=== PATIENT | male | born 1945 | race Caucasian/White ===

== ENCOUNTER 2017-07-14 01:23 | Inpatient (IN) ==
[2017-07-14 01:44] LABS: Basophils # 0.1 K/mcL (0.0-0.2); Basophils % 0.5 %; Eosinophils # 0.1 K/mcL (0.0-0.6); Eosinophils % 0.9 %; Hematocrit 47.3 % (37.5-50.1); Hemoglobin 16.6 g/dL (12.9-16.9); Immature Granulocytes % 0.5 % (0-4); Lymphocytes # 4.3 K/mcL (0.6-4.6); Lymphocytes % 33.5 %; Mean Corpuscular HGB Conc 35.1 g/dL (31.6-35.5); Mean Corpuscular Hemoglobin 29.9 pg (28.0-33.3); Mean Corpuscular Volume 85.2 fL (83.0-100.0); Monocytes # 0.7 K/mcL (0.0-1.3); Monocytes % 5.3 %; Neutrophils # 7.6 K/mcL (1.6-8.9); Platelet Count 244 K/mcL (140-400); Red Blood Count 5.55 M/mcL (4.19-5.50); Red Cell Distribution Width 12.5 % (11.5-14.5); Segmented Neutrophils % 59.3 %
[2017-07-14 01:50] LABS: INR 1.1; Prothrombin Time 12.3 Seconds (9.4-12.1)
[2017-07-14 01:53] LABS: Activated Partial Thrombo Time 27.7 Seconds (26.0-36.0)
[2017-07-14 02:00] LABS: BUN/Creatinine Ratio 12 (6-26); Blood Urea Nitrogen 16 mg/dL (8-26); Calcium 10.3 mg/dL (8.6-10.8); Carbon Dioxide 24 mEq/L (19-29); Chloride 103 mEq/L (98-109); Glucose 253 mg/dL (70-99); Osmolality,Calculated 298 (280-300); Potassium 5.1 mEq/L (3.5-4.5); Sodium 139 mEq/L (136-145); eGFR For African Americans > 60 (> 60); eGFR For Non-African Americans 53 (> 60)
--- NOTE | 2017-07-14 02:04 | Emergency Department Note ---
Disposition Clinical Impression: Elevated troponin Chest pain Qualifiers: Chest pain type: chest pain on breathing Qualified Code(s): R07.1 - Chest pain on breathing; R07.81 - Pleurodynia Disposition: Admitted As Inpatient Condition: Good Time of Disposition: 02:40 Chest Pain HPI - General Chief Complaint: ED Chest Pain Stated Complaint: cp Time Seen by Provider: 07/14/17 01:26 Source: patient Mode of arrival: ambulatory Limitations: no limitations Vital Signs Reviewed: Yes Nursing Notes Reviewed: Yes - History of Present Illness HPI Narrative: 9-year-old male presents to the ED complaining of chest pain occurring for about 2 weeks but have increased today where happened twice in the last time he is had it for the last 4 hours. He says it feels a burning in his chest that radiates to both arms and up into his right jaw. He has no cardiac history. He did have a heart catheter done in the s but there was no blockages found. He has not had any cardiac workup since that time. He has had no nausea or vomiting. He recently was changed off metformin as he was diagnosed with diabetes due to having high blood sugars while on it and having some chest discomfort while on it. He was changed to glyburide today. His primary care physician did order a stress test due to this chest pain that has been going on. But they have not heard back on when his schedule. Patient does have a cardiac history in the family. He is not having nausea or vomiting no shortness of breath. He does say the chest pain does get worse when he does physical activity. Patient otherwise has no complaints. Severity scale (1-10): 7 - Related Data Allergies Allergy/AdvReac Type Severity Reaction Status Date / Time No Known Allergies Allergy Verified 07/14/17 01:27 Review of Systems: 10 point review of systems done and negative unless otherwise stated in history of present illness. All systems ED: reviewed and negative except as stated. Review of Systems: As Per HPI Constitutional: Denies: fever, chills, weakness, weight change Cardiovascular: Reports: chest pain. Denies: palpitations, dyspnea on exertion Gastrointestinal: Denies: abdominal pain, nausea, vomiting, diarrhea, constipation, hematemesis, melena, hematochezia Chest Pain PMH - Past Medical History Medical history: Reports: diabetes, hyperlipidemia Psychiatric history: Reports: no psych history - Social History Smoking Status: Never smoker Alcohol use: Reports: occasionally Drug use: Reports: none Physical Exam - General Limitations: no limitations General appearance: alert, in no apparent distress - Head Head exam: atraumatic, normocephalic, normal inspection - Eye Eye exam: Present: normal appearance, PERRL, EOMI - ENT ENT exam: normal exam, normal oropharynx, mucous membranes moist - Neck Neck exam: Present: normal inspection, full ROM, trachea midline - Chest Chest inspection: Present: normal inspection, symmetric chest wall rise - Respiratory Respiratory exam: Present: normal lung sounds bilaterally - Cardiovascular Cardiovascular exam: Present: regular rate, normal rhythm, normal heart sounds - Abdominal Exam Abdominal exam: Present: soft, Non-Tender. Absent: tenderness, distention, guarding, rebound, rigidity - Expanded Lower Extremity Exam Neurovascular/Tendon exam: Absent: motor deficit, sensory deficit, tendon deficit - Back Exam Back exam: Present: normal inspection, full ROM. Absent: tenderness, CVA tenderness (R), CVA tenderness (L) - Neurological Exam Neurological exam: Present: alert, oriented X3 - Skin Skin exam: Present: warm, dry, intact, normal color Course Course Narrative: 72-year-old male presented with chest pain. We did a normal chest pain workup including EKG, chest x-ray aspirin, troponin, CBC, CMP. Patient is okay with this plan. This patient is most likely being admitted I explained it to him. He is okay with this. Vital Signs Temperature 97.7 F 07/14/17 01:24 Pulse Rate 78 07/14/17 01:24 Respiratory Rate 18 07/14/17 01:24 Blood Pressure 183/85 07/14/17 01:24 O2 Sat by Pulse Oximetry 97 07/14/17 01:24 Temperature 97.7 F 07/14/17 01:24 Pulse Rate 78 07/14/17 01:24 Respiratory Rate 18 07/14/17 01:24 Blood Pressure 183/85 07/14/17 01:24 O2 Sat by Pulse Oximetry 97 07/14/17 01:24 Oxygen Delivery Oxygen Delivery Room Air Chest Pain - MDM Narrative Medical decision making narrative: 9-year-old male presents to the ED for chest pain. He states has been going on for a few months but has worsened the last week or so. He states that he did have 4 hours if continued chest pain before arrival. As he arrives he has no chest pain. He was recently changed from metformin to glyburide yesterday and is PCP also ordered a stress test through this chest pain is been having. The chest pain is worse on exertion. We did normal chest pain workup which came back showing elevated troponin at 1.78. After reevaluating him we noticed that his EKG was changing through several of the ST depressions reside a repeat an EKG the repeat EKG did have some ST changes where he was showing depression in leads 2 and aVL and also had flipped T waves in V5 and V6. At this time we called the interventional list and explained to him the patient he said to start heparin and they would do a catheter in the morning. We admitted to the hospitalist who agreed to accept the patient. He started him on heparin and give him aspirin. Patient was admitted in stable condition still having no chest pain. Chest X-Ray 07/14/17 01:28 IMPRESSION: Negative portable chest. D/ / Ritchie Cadet MD / Ritchie Cadet MD Interpreting Provider: Ritchie Cadet MD - Medical Records Medical records reviewed: Yes I reviewed the patient's medical records. - Lab Data Lab results reviewed: Yes I reviewed the patient's lab results. Result diagrams: 07/14/17 01:38 07/14/17 01:38 Lab Results 07/14/17 07/14/17 07/14/17 Range/Units 01:38 01:38 01:38 WBC 12.8 H (4.3-11.1) K/mcL RBC 5.55 H (4.19-5.50) M/mcL Hgb 16.6 (12.9-16.9) g/dL Hct 47.3 (37.5-50.1) % MCV 85.2 (83.0-100.0) fL MCH 29.9 (28.0-33.3) pg MCHC 35.1 (31.6-35.5) g/dL RDW 12.5 (11.5-14.5) % Plt Count 244 (140-400) K/mcL MPV 9.0 L (9.4-12.4) fL Immature Gran % 0.5 (0-4) % Seg Neutrophils % 59.3 % Lymphocytes % 33.5 % Monocytes % 5.3 % Eosinophils % 0.9 % Basophils % 0.5 % Neutrophils # 7.6 (1.6-8.9) K/mcL Lymphocytes # 4.3 (0.6-4.6) K/mcL Monocytes # 0.7 (0.0-1.3) K/mcL Eosinophils # 0.1 (0.0-0.6) K/mcL Basophils # 0.1 (0.0-0.2) K/mcL PT 12.3 H (9.4-12.1) Seconds INR 1.1 APTT 27.7 (26.0-36.0) Seconds Sodium 139 (136-145) mEq/L Potassium 5.1 H (3.5-4.5) mEq/L Chloride 103 (98-109) mEq/L Carbon Dioxide 24 (19-29) mEq/L BUN 16 (8-26) mg/dL Creatinine 1.34 H (0.72-1.25) mg/dL Est GFR ( Amer) > 60 (> 60) Est GFR (Non-Af Amer) 53 L (> 60) BUN/Creatinine Ratio 12 (6-26) Glucose 253 H (70-99) mg/dL Calculated Osmolality 298 (280-300) Calcium 10.3 (8.6-10.8) mg/dL - Radiology Data Radiology results reviewed: Yes I reviewed the patient's radiology results. - EKG Data EKG attestation: Yes I reviewed and interpreted this EKG. EKG results narrative: EKG #1 done at 0129 reviewed by myself and the attending shows normal sinus rhythm with no acute changes. At a rate of 78, GA interval 188, QRS 94, QTc 380 with a leftward axis. There is no acute ST changes, no acute T-wave changes. No signs of heart strain or hypertrophy, heart block. No signs of WPW /brugada syndrome. There was no old EKG to compare with. EKG #2 done at 0212 myself and the attending shows normal sinus rhythm at a rate of 81, GA interval 170, QRS 86, QTC 393 with a leftward axis deviation. There is new ST depression in leads 2 and aVL as well as lead 1. There is also flipped T waves in V5 and V6. There is no other acute changes. Heart Score - Score History: Highly Suspicious EKG: Normal Age: Greater than 65 Risk Factors: 1-2 risk factors Troponin: 1-3x normal limit HEART Score Total: 6
--- NOTE | 2017-07-14 02:08 | Emergency Department Note ---
START Narrative - START START: I examined this patient and my medical decision-making was reviewed with the Resident Physician. I agree with the documented findings, disposition and treatment plan as described except to the extent set forth below. 72-year-old male presents emergency room for chest pain. States it starts in the midsternal region and radiates up into the neck and ears into the left arm. Saw his doctor yesterday who thought it could have been indigestion. He had been on metformin but he told him to stop that secondary to the GI symptoms. He has no documented cardiac history. His last heart catheter was in the . Patient when he be admitted for further ACS workup and evaluation and possible stress test.
[2017-07-14] MEDS ORDERED: Aspirin 81 MG TAB.CHEW PO ONE (02:09)
[2017-07-14] MEDS ORDERED: *HR* Heparin 5,000 UNIT/ML VIAL IVP ONE (02:20)
[2017-07-14] MEDS: Heparin 25,000 UNIT/500 ML D5W 25,000 UNIT/500 ML MLS IVC SCH (02:40)
[2017-07-14] MEDS ORDERED: Nitroglycerin 0.4 MG TAB.SUBL SL PRN (02:55)
[2017-07-14] MEDS ORDERED: Naloxone 0.4 MG/ML INJ IVP PRN (02:55)
[2017-07-14] MEDS ORDERED: *HR* Dextrose 50 % in Water (Syg) 50 ML SYRINGE IVP PRN (02:55)
[2017-07-14] MEDS ORDERED: Ondansetron 4 MG/2 ML VIAL IVP PRN (02:55)
[2017-07-14] MEDS ORDERED: Dextrose Gel 15 GM PO PRN ×2 (02:55)
[2017-07-14] MEDS ORDERED: *HR* Morphine 2 MG/ML SYRINGE IVP PRN ×2 (02:55→03:08)
[2017-07-14] MEDS ORDERED: D5% in Water 1,000 ML IVC PRN (02:55)
[2017-07-14] MEDS ORDERED: 0.9 % Sodium Chloride 1,000 ML IVC SCH (03:00)
[2017-07-14] MEDS ORDERED: Pantoprazole 40 MG VIAL IVP SCH (03:01)
--- NOTE | 2017-07-14 03:04 | Internal Med History&Physical ---
Date of Encounter: 07/14/17 Time of Encounter: 03:02 Assessment and Plan (1) Non-STEMI (non-ST elevated myocardial infarction) Current visit: Yes Status: Acute Continue heparin drip Cardiology was consulted Continue aspirin, metoprolol, Lipitor, nitroglycerin, morphine as needed Monitor troponins, check echocardiogram Nothing by mouth for possible cardiac catheterization later today Protonix IV for GI prophylaxis and heparin drip for DVT prophylaxis. The patient will be admitted as inpatient, expected to stay more than 2 midnights. Full code. Time spent on this admission 40 minutes. (2) Accelerated hypertension Current visit: Yes Status: Acute Hydralazine as needed (3) Diabetes Current visit: Yes Status: Acute Insulin sliding scale Hold glyburide Qualifiers: Diabetes mellitus type: type 2 Diabetes mellitus complication status: without complication Diabetes mellitus retirement insulin use: without retirement use Qualified Code(s): E11.9 - Type 2 diabetes mellitus without complications (4) Leukocytosis Current visit: Yes Status: Acute Qualifiers: Leukocytosis type: unspecified Qualified Code(s): D72.829 - Elevated white blood cell count, unspecified (5) Hyperkalemia Current visit: Yes Status: Acute Continue IV fluids and monitor potassium, consider Kayexalate (6) Dehydration Current visit: Yes Status: Acute IV fluids Internal Medicine - H&P: HPI Chief complaint: Chest pain Admitted From: Emergency Dept History of present illness: Mr. Downing is a 72 year old male with a past medical history of diabetes type 2 not insulin-dependent, hypertension, hyperlipidemia who came to the emergency room complaining of severe chest pain, burning like has been going on and off for the past 2 weeks and got worse around 1 AM and lasted for about 4 hours. Described as 8 out of 10 in intensity radiating to both shoulders and both sides of the jaw, the patient is pain-free at the moment. His creatinine has increased up to 1.34 from a baseline of 1.16. Potassium is 5.1 troponin is 1.78 White blood cell count 12.8. Blood pressure is very high at 183/85. The patient mentions that he was complaining of some belching. EKG shows ST abnormalities in leads 1 and 2 and aVL with T-wave inversions in the lateral leads. Cardiology was contacted and heparin drip was started. Past Med Surg Social Fam HX - Past Medical History Medical history: diabetes (Not insulin-dependent), hyperlipidemia, hypertension (Not treated for the past year) Psychiatric history: no psych history - Past Surgical History Surgical History: cholecystectomy, other (Normal cardiac catheterizations in the 90s, tonsillectomy) - Social History Smoking Status: Never smoker Smokeless Tobacco Status: No Alcohol use: occasionally Drug use: none - Additional Family History Additional family history: Father with a myocardial infarction in his 70s and mother with myocardial infarction in her 60s Internal Medicine - H&P: Meds 3 Allergy/AdvReac Type Severity Reaction Status Date / Time No Known Allergies Allergy Verified 07/14/17 01:27 All Systems PM: A 10-system review of systems was performed and is negative for pertinent findings except as documented above in the HPI. Review of systems: Denies any chest pain at the moment no shortness of breath. Other systems out of the 10 reviewed were negative - Constitutional Vitals: Temp Pulse Resp BP Pulse Ox 97.7 F 77 18 156/84 96 07/14/17 01:24 07/14/17 02:24 07/14/17 02:52 07/14/17 02:52 07/14/17 02:24 General appearance: Present: A&O X 3 - Head Head exam: Present: atraumatic, normocephalic - Eye Eye exam: Present: PERRL, conjuntiva pink, sclera anicteric Pupils: Present: PERRL - Neck Neck exam general surgery: Present: supple, trachea midline. Absent: lymphadenopathy - Respiratory Respiratory exam: Present: CTAB. Absent: accessory muscle use, rales, rhonchi, wheezes - Cardiovascular Cardiovascular exam: Present: RRR, +S1, +S2. Absent: diastolic murmur, gallop, rubs, systolic murmur - GI/Abdominal GI/Abdominal exam: Present: normal bowel sounds, soft, no peritoneal signs. Absent: distended, tenderness - Extremities Exam Extremities exam: Present: warm, radial pulses palpable and symmetrical. Absent : calf tenderness, cyanotic, pedal edema - Neurological Exam Neurological exam: Present: CN II-XII intact, oriented X3, no focal deficits. Absent: pronater drift, facial droop, speech deficit - Skin Skin exam: Present: dry, intact Internal Med - H&P Results - Labs CBC & Chem 7: 07/14/17 01:38 07/14/17 01:38
[2017-07-14 05:14] LABS: Chol/HDL Ratio 3.2 (0-4.9)
[2017-07-14] MEDS ORDERED: Insulin LISPRO 300 UNITS/3 ML VIAL SQ SCH (06:00)
[2017-07-14] MEDS ORDERED: Aspirin 81 MG TAB.CHEW PO SCH (09:00)
--- NOTE | 2017-07-14 09:39 | Event Note ---
Date of Encounter: 07/14/17 Time of Encounter: 09:34 Seen and evaluated at bedside with partner Admitted and being managed for NSTEMI He is without chest pain at this time, and denies shortness of breath, he is very active at baseline, and is not sedentary, he is a non-smoker Physical exam: VSS, not in distress, no chest wall tenderness, chest is CTAB, HS S1, S2, no m/g/r, abdomen is soft and non-tender. Extremities with no edema. Labs and Imaging reviewed: Mild hyperkalemia, dehydration, Troponin 1.78-2.96 CXR unremarkable, ECHO is pending A/P NSTEMI: Continue heparin/BB/ASA/High intensity statin. Hold ACEI due to abnormal kidney function, cardiology eval Dehydration: Slight elevation in Creatinine, no BRANDY criteria, continue IVF avoid nephrotoxins, high risk due to exposure to contrast for [facility] Hyperkalemia: Should improve with IVF Uncontrolled HTN: Improved DM: FS acceptable, A1C 7.6 -07/12/17. Continue insulin sliding scale, Lipids are WNL
--- NOTE | 2017-07-14 09:50 | Cardiology Consult Note ---
Date of Encounter: 07/14/17 Time of Encounter: 09:46 Assessment and Plan (1) Non-STEMI (non-ST elevated myocardial infarction) Current Visit: Yes Status: Acute NSTEMI as patient has had atypical chest pain and elevated troponin with ST depression leads II, AVL, and Twave inversion on V5, V6. 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 Discussion w patient/family: The assessment and plan as outlined above was discussed with the patient and/or family members who expressed understanding and agreement. All questions were answered. Thank you for involving us in the care of your patient. Please call with any questions. History of Present Illness Consult date: 07/14/17 Requesting physician: Ritchie Mccabe Consult reason: NSTEMI Chief complaint: chest pain History of present illness: Mr. Downing is a 72 year old male with a pmh of DM2, HTN, HLP, non-smoker presented with CP for 2 weeks that worsened overnight and was found to have an NSTEMI. Patient has had burning chest pain radiating to both arms and R jaw. Worst with exertion since June. He had chest pain once before this in the and had a negative cath. In the ED patient was found to have elevated troponin to 1.78, ST depression in II, avL, and inverted T waves v5, v6. Currently patient says his chest pain is mild like "indigestion" and an aching between his shoulder blades. Currently light headed but Denies N/V. Past Med Surg Social Fam HX - Past Medical History Medical history: diabetes, hyperlipidemia, hypertension Psychiatric history: no psych history - Past Surgical History Surgical History: cholecystectomy, other - Social History Smoking Status: Never smoker Smokeless Tobacco Status: No Alcohol use: occasionally Drug use: none - Family History Father Living Status: Age at : 87 Cause of : [place] Hx Family Cardiac Disorders: Yes ([place] x3,) Hx Family Respiratory Disorders: Yes (Emphysema) Hx Family Cancer: No Hx Family GI Disorders: No Hx Family Genitourinary Disorders: Yes ("twisted bowel") Hx Family Endocrine Disorder: No Hx Family Musculoskeletal Disorders: No Hx Family Neuromuscular Disorders: No Hx Family Neurologic Disorders: No Hx Family HEENT Disorders: No Hx Family Autoimmune Disorders: No Hx Family Reproductive Disorders: No Hx Family Psychosocial Disorders: No Hx Family Medical Disorders: No Medications and Allergies Albuterol Sulfate [Albuterol Inhaler] 2 puff IH Q4-6H PRN 07/14/17 [History] Aspirin [Lo-Dose Aspirin EC] 81 mg PO DAILY 07/14/17 [History] Atorvastatin [Lipitor] 40 mg PO HS 07/14/17 [History] Glimepiride [Amaryl] 2 mg PO DAILY 07/14/17 [History] Pantoprazole Sodium 40 mg PO DAILY 07/14/17 [History] 3 Allergy/AdvReac Type Severity Reaction Status Date / Time No Known Allergies Allergy Verified 07/14/17 01:27 All Systems Review: A 10-system review of systems was performed and is negative for pertinent findings except as documented above in the HPI. Physical Examination Vital Signs, Last 4 Hours Temp Pulse Resp BP Pulse Ox 07/14/17 07:41 98.5 F 63 16 130/72 96 General: Conversant, No Apparent Distress Neck: No JVD, Normal carotid pulses Cardiac: Reg Rate and Rhythm, Normal S1 and S2, No Murmur Lungs: Other (+ crackles at R lung base) Neuro: Alert and responsive, No focal deficits noted Abdomen: Soft, Non-Tender Skin: No rashes noted on visualized skin Extremities: No Clubbing, No Cyanosis, No Edema, Normal Pulses Results 07/14/17 01:38 07/14/17 01:38 Lab Results 07/14/17 08:55 APTT 96.3 H D Consult Discharge Plan - Plan Referrals: Bambi Garner MD [Primary Care Provider] - 07/19/17 9:15 am ()
[2017-07-14] MEDS: Aspirin Enteric Coated 81 MG Tablet PO SCH (09:54)
--- NOTE | 2017-07-14 09:55 | Electrocardiograph Report ---
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
--- NOTE | 2017-07-14 09:55 | Electrocardiograph Report ---
[place] [id number] Test Date: 2017-07-14 Pat Name: Alec Downing Department: 112 Room: 2A14 Gender: M Desk Director: MICHAEL : 1945 Requested By: Kendrick Miller Order Number: [id number] Reading MD: Abbey Peterson Measurements Intervals [place] Rate: 80 P: 57 MS: 191 QRS: -21 QRSD: 90 T: 212 QT: 363 QTc: 400 Interpretive Statements SINUS RHYTHM BORDERLINE LEFT AXIS DEVIATION ST DEVIATION AND MODERATE T-WAVE ABNORMALITY, CONSIDER LATERAL ISCHEMIA ST DEVIATION AND MODERATE T-WAVE ABNORMALITY, CONSIDER INFERIOR ISCHEMIA Electronically Signed On 07-14-2017 9:53:46 EDT by Abbey Peterson
--- NOTE | 2017-07-14 09:56 | Electrocardiograph Report ---
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
[2017-07-14] MEDS ORDERED: Heparin 1,000 UNITS/500 mL NS 500 ML ONE (10:00)
[2017-07-14] MEDS ORDERED: *HR* Heparin 10,000 UNIT/10 ML VIAL ONE (10:00)
[2017-07-14] MEDS ORDERED: 0.9 % Sodium Chloride 1,000 ML ONE ×2 (10:00→10:05)
[2017-07-14] MEDS ORDERED: *HR* Midazolam HCl 2 MG/2 ML VIAL ONE (10:04)
--- NOTE | 2017-07-14 10:26 | Pre-Sedation Evaluation ---
Pre-sedation evaluation - Pre-sedation checklist Date of procedure: 07/14/17 Procedure: heart cath Recent Vitals: Last Vital Signs Temp 98.5 F 07/14/17 07:41 Pulse 63 07/14/17 07:41 Resp 16 07/14/17 07:41 BP 130/72 07/14/17 07:41 Pulse Ox 96 07/14/17 10:00 H&P (including ROS) documented in medical record: Yes Previous reaction to sedatives/anesthetics: No Dietary Status: NPO after Midnight Airway Assessment: Patient can open mouth completely, TMJ function normal Dentition: dentures removed Possible difficult airway: No ASA Classification *see protocol: CLASS III-Severe systemic disease Plan of Care: Pt appropriate candidate for procedure/moderate/conscious sedation , Risks/benefits of procedure/sedation discussed w/ patient/family, If not NPO; Risk of intake outweiged by necessity to perform procedure
--- NOTE | 2017-07-14 11:01 | Invasive Diagnostic Lab Proc ---
Name: Alec Downing Date of Study: 07/14/2017 Date: 1945 Ht: 68.9in Medical Record#: [id number] Age: 72 Wt: 191.80lb Gender: Male BSA: 2.03 Order #: [id number] BMI: 28.41 Physicians Procedure Physician: Diomedes Friedman DO Referring MD: Referring MD: Staff Name Position Time In Mellisa Son RT (R) Scrub 10:22 AM Rosalva Mata RN Retail Director 10:22 AM Ariana Fields RN Monitor 10:22 AM Indications Indication Non-Stemi Procedures Performed Procedure L HRT ARTERY/VENTRICLE ANGIO Pre-Procedure Checklist Informed consent is complete signed and on chart. H&P is on chart. ID band is on and ID verified with patient. Patient NPO for procedure The procedure was described for the patient and questions were answered. Blood Pressure: 130/72 ECG is on chart. Rhythm: NSR Plan of Care Patient will tolerate the procedure without complications. Adequate level of comfort will be maintained. Hemodynamics will remain stable Patient will recover from procedure without complications. Respiratory function will be maintained. Cardiac rhythm will remain stable. Patient temperature will be maintained. Patient and/or family have verbalized understanding of the procedure. Patient Education Chief Complaint/Reason for Test: Cardiac Cath Developmental Category: Geriatric (65+ years) Developmentally Appropriate for Age: Yes Learning Barriers: None Education Needs: Procedure Education Method: Verbal Information Taught: Cardiac Cath Educational Evaluation: Able to repeat information Intravenous Access Time IV Size Location DC'd Fluid/Drip Rate Units RN 10:00 AM 18g 1 /" Patent On Arrival Lt Antecubital 0.9NaCl 25 ml/hr Hammad Wheeler RN Allergies No Known Allergies Vital Signs Time BP (mmHg) HR (bpm) O2 Sat. RR (bpm) LOC 10:01 AM 130 / 72 63 96 % 16 5 = Fully awake and oriented or at pre-proc level 10:23 AM / % 5 = Fully awake and oriented or at pre-proc level 10:23 AM / % 5 = Fully awake and oriented or at pre-proc level 10:23 AM 154 / 78 75 97 % 12 10:27 AM 133 / 72 72 95 % 21 10:32 AM 119 / 67 66 96 % 21 10:37 AM 124 / 69 63 95 % 15 10:42 AM 118 / 73 67 97 % 13 10:47 AM 129 / 72 64 98 % 19 10:38 AM / % 5 = Fully awake and oriented or at pre-proc level Procedural Medications Time Medication Dose Units Method Given By 10:23 AM Oxygen 2 L/min nasal cannula Rosalva Mata RN 10:24 AM Versed 2 mg Intravenous Rosalva Mata RN 10:36 AM Lidocaine 2% 10 ml Subcutaneous Diomedes Friedman DO ASA Classification: CLASS III- Severe systemic disease (i.e. prior AMI, diabetes with vascular complications, morbid obesity) Layne Score Preprocedure Postprocedure Activity 2- Moves 4 extremities sustained head lift Activity 2- Moves 4 extremities sustained head lift Circulation 2- SBP +/= 20 points of pre-anesthetic level Circulation 2- SBP +/= 20 points of pre-anesthetic level Consciousness 2- Awake and alert oriented x 3 Consciousness 2- Awake and alert oriented x 3 O2 Saturation 2- Able to maintain O2 satruation of 92% on room air O2 Saturation 2- Able to maintain O2 satruation of 92% on room air Respiratory 2- Able to deep breathe and cough well Respiratory 2- Able to deep breathe and cough well Total Score 10 Total Score 10 Contrast Agent: Isovue Diagnostic Contrast: 50 ml Total Contrast: 50 ml Fluoro Dose: 167 mGy Procedure Log Time Note Enter By 10:21 AM CathStat 10:21 AM Vitals capture started with the following parameters, Patient=Adult, Interval=5 min, Initial Qyefwhrw=183 mmHg, Deflation Rate=5 mmHg, Cuff placed on Right Arm 10:22 AM 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 Bilateral groin prepped with Chloraprep by Rosalva Mata RN, safety strap applied then patient was draped. Skin intact. ejohnson 10:22 AM Physician arrived 10: ejohnson 10: AM Meet and natasha completed ejohnson 10: AM Sign in performed according to hospital policy. ejohnson 10: AM Procedure start 10: ejohnson 10:23 AM HR=75 bpm, BEZL=516/78 mmhg, SpO2=97.0 %, Resp=12 B/min, Comment=SR 10: AM Time: : Oxygen on at 2 L/min per nasal cannula by Rosalva Mata RN ejohnszuri 10: AM Time: : Patient comfortable and pain free: Yes ejohnson 10: AM Time: LOC: 5 = Fully awake and oriented or at pre-proc level ejohnson 10: AM Recorded ECG: HR=75 Condition=Condition 1 10: AM Time: 10:24 Versed 2 mg Intravenous Given by Rosalva Tracy RN ejohnszuri 10:27 AM HR=72 bpm, HYAD=964/72 mmhg, SpO2=95.0 %, Resp=21 B/min, Comment=SR 10:32 AM HR=66 bpm, OHGZ=262/67 mmhg, SpO2=96.0 %, Resp=21 B/min, Comment=SR 10:34 AM ASA Class CLASS III- Severe systemic disease (i.e. prior AMI, diabetes with vascular complications, morbid obesity) ejohnson 10:36 AM Time out performed according to hospital policy ejohnson 10:36 AM Time: 10:36 10 ml Lidocaine 2% to right groin Subcutaneous Given by Diomedes Friedman DO ejohnson 10:37 AM HR=63 bpm, RSDD=857/69 mmhg, SpO2=95.0 %, Resp=15 B/min, Comment=SR 10:38 AM Time: :LOC: 5 = Fully awake and oriented or at pre-proc level ejohnson 10:38 AM Time: 10:23 Patient comfortable and pain free: Yes ejohnson 10:38 AM Micro-Introducer Kit utilized for sheath placement ejohnson 10:38 AM Sheath exchanged for a 6 Fr 11 cm Cordis Yessica sheath [id number] ejohnson 10:38 AM Pressure channel 2 zeroed. 10:39 AM 5Fr FR 4 catheter inserted over the wire DNC ejohnson 10:39 AM Catheter selectively placed in left ventricle ejohnson 10:39 AM Bolus angiogram of left Ventricle complete: hand injection of 12ml of contrast ejohnson 10:40 AM Recorded Pressure: LV, HR=60, Condition=Condition 1 (Left Ventricle) LV 117/12/21 10:40 AM Recorded Pressure: LV, Ao, HR=62, Condition=Condition 1 (Left Ventricle) LV 121/10/19, (Aorta) Ao 125/67/90 10:41 AM RCA angiography performed in multiple views. ejohnson 10:41 AM Recorded Pressure: Ao, HR=65, Condition=Condition 1 (Aorta) Ao 126/70/93 10:41 AM Catheter removed ejohnson 10:41 AM 5Fr FL 4 catheter inserted over the wire DNC ejohnson 10:42 AM LCA angiography performed in multiple views. ejohnson 10:42 AM HR=67 bpm, TYDZ=870/73 mmhg, SpO2=97.0 %, Resp=13 B/min, Comment=SR 10:42 AM Recorded Pressure: Ao, HR=65, Condition=Condition 1 (Aorta) Ao 120/64/85 10:43 AM Bolus angiogram of right Femoral complete: 4ml of contrast hand injection ejohnson 10:45 AM Procedure completed at 10:45 ejohnson 10:46 AM Sign out completed: Radiation Dose 167.12 mGy Fluoro Time: 1.2 Isovue 370 - 200ml contrast 50 ml given by Diomedes Friedman DO. Complications: NoneCardiac Rehab Consult needed: YesConfirmed administered medications: Yes ejohnson 10:47 AM Arterial sheath pulled, Angio-seal closure device used and was Successful S/N. ejohnson 10:47 AM HR=64 bpm, TJQL=823/72 mmhg, SpO2=98.0 %, Resp=19 B/min, Comment=SR 10:47 AM Post ECG NSR ejohnson 10:47 AM Post Blood Pressure 129/72 ejohnson 10:47 AM 10:47 Post Pulses Bilateral DP & PT 1+ ejohnson 10:47 AM Information taught Cardiac Cath and Angioseal ejohnson 10:47 AM Education needs Plan of Care and Responsibilities of Patient in Care ejohnson 10:47 AM Learning barriers :None ejohnson 10:47 AM Education Methods Verbal ejohnson 10:47 AM Education evaluation Able to repeat information ejohnson 10:48 AM Cardiothoracic surgeon consulted by physician ejohnson 10:48 AM Site status No bleeding/hematoma - Rt Groin as reported by Mellisa Son RT (R) at 10:47 ejohnson 10:48 AM Plavix, Effient or Brilinta given No ejohnson 10:48 AM Family placed in consult room. ejohnson 10:[address] Mullins called back and was updated ejohnson 10:50 AM Complications: None ejohnson 10:50 AM Coronary Dominance: right ejohnson 10:50 AM Lesion found in Mid RCA. Pre Stenosis: 90 ejohnson 10:51 AM Lesion found in LMCA. Pre Stenosis: 70 ejohnson 10:51 AM Lesion found in Mid LAD. Pre Stenosis: 90 ejohnson 10:51 AM Lesion found in Mid Circumflex. Pre Stenosis: 90 ejohnson 10:51 AM Left Main Coronary Artery with 70% stenosis ejohnson 10:51 AM Mid/Distal Left Anterior Descending Coronary Artery and diagonal branches with 90% stenosis. ejohnson 10:52 AM Circumflex, Obtuse Marginal, Left Posterior Descending, and Left Posterolateral Coronary Arteries with 90 % stenosis. ejohnson 10:52 AM Right Coronary, Right Posterior Descending Arteries with Right Posterolateral and Acute Marginal branches with 90 % stenosis. ejohnson 10:53 AM Report given to Maria SEARS Pt taken to 2A Room #14. 10:53 ejohnson 10:53 AM Plavix, Effient or Brilinta given No ejohnson 10:53 AM Time: 10:38 Patient comfortable and pain free: Yes ejohnson 10:53 AM Time: 10:38LOC: 5 = Fully awake and oriented or at pre-proc level ejohnson 10:53 AM Delay to floor No ejohnson 10:53 AM Patient out of room: 10:53 ejohnson Complications Complication None Hemodynamics Pressures Site Systolic/A Wave Diastolic/V Wave Mean LV 117 12 21 LV 121 10 19 AO 125 67 90 AO 126 70 93 AO 120 64 85 Post Procedure Information Blood Pressure: 129/72 mmHg Rhythm: NSR Post procedural instructions were given Surgery consult for CABG Closure Device Time Device Success/Fail 07/14/2017 10:47:00 AM Angio-Seal VIP Failed Site Checks Time Location Status Staff Sheath In? Note 10:47 AM Rt Groin No bleeding/hematoma Mellisa Son RT (R) Pulses Time Site Pre-Procedure Post-Procedure Note Bilateral DP & PT 1+ Bilateral radial 2+ 10:47:00 AM Bilateral DP & PT 1+ Updated by Ariana Fields RN on 07/14/2017 10:57:24 AM Ariana Fields RN electronically signed on 07/14/2017 10:58:20 AM with status of Final
[2017-07-14] MEDS: 0.9 % Sodium Chloride 1,000 ML IVC SCH ×2 (11:15→20:13)
[2017-07-14] MEDS ORDERED: *HR* Heparin 5,000 UNIT/ML VIAL IVP PRN ×4 (11:59→12:20)
--- NOTE | 2017-07-14 12:23 | Cardiothoracic Consult Note ---
Date of Encounter: 07/14/17 Time of Encounter: 12:20 Assessment and Plan (1) Non-STEMI (non-ST elevated myocardial infarction) Current Visit: Yes Status: Acute The assessment and plan as outlined above was discussed with the patient and/or family members who expressed understanding and agreement. All questions were answered. The patient has decreased ventricular function with left main disease and triple -vessel disease. He is a candidate for coronary artery bypass grafting with grafts to his LAD, circumflex and right coronary arteries. Risks of surgery include , infection, stroke, bleeding, myocardial infarction, clots around the heart, renal or respiratory failure, acute or chronic graft closure, phrenic nerve injury and sternal dehiscence. The procedure, its risks, benefits and alternatives were explained and he does wish to proceed. He and his have no questions and we will schedule him for tomorrow. - History of Present Illness Consult date: 07/14/17 History of present illness: Mr. Downing is a 72 year old male History of present illness. The patient is a 72-year-old gentleman who presented today with chest pain and a positive troponin. Troponin was 5.23. The chest pain was going into both arms and his jaw. He has been having multiple episodes of angina over the past month, both at rest and with exertion. Past medical history is notable for hypertension, diabetes on oral agents and hyperlipidemia. He is status post cholecystectomy. Social history. He lives in [place]. 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 He does not smoke. He occasionally drinks alcohol. Family history is positive for coronary artery disease in his mother and father. Review of systems is negative for stroke or TIA. Negative for saphenous vein varicosities or strippings. Cardiac catheterization revealed ejection fraction of 40%. He has a 70% left main lesion. A 90% LAD lesion. A 90% circumflex lesion. A 90% right coronary artery lesion. Past Med Surg Social Fam HX - Past Medical History Medical history: diabetes, hyperlipidemia, hypertension Psychiatric history: no psych history - Past Surgical History Surgical History: cholecystectomy, other - Social History Smoking Status: Never smoker Smokeless Tobacco Status: No Alcohol use: occasionally Drug use: none - Family History Father Living Status: Age at : 87 Cause of : [place] Hx Family Cardiac Disorders: Yes ([place] x3,) Hx Family Respiratory Disorders: Yes (Emphysema) Hx Family Cancer: No Hx Family GI Disorders: No Hx Family Genitourinary Disorders: Yes ("twisted bowel") Hx Family Endocrine Disorder: No Hx Family Musculoskeletal Disorders: No Hx Family Neuromuscular Disorders: No Hx Family Neurologic Disorders: No Hx Family HEENT Disorders: No Hx Family Autoimmune Disorders: No Hx Family Reproductive Disorders: No Hx Family Psychosocial Disorders: No Hx Family Medical Disorders: No Medications and Allergies Albuterol Sulfate [Albuterol Inhaler] 2 puff IH Q4-6H PRN 07/14/17 [History] Aspirin [Lo-Dose Aspirin EC] 81 mg PO DAILY 07/14/17 [History] Atorvastatin [Lipitor] 40 mg PO HS 07/14/17 [History] Glimepiride [Amaryl] 2 mg PO DAILY 07/14/17 [History] Pantoprazole Sodium 40 mg PO DAILY 07/14/17 [History] 3 Allergy/AdvReac Type Severity Reaction Status Date / Time No Known Allergies Allergy Verified 07/14/17 01:27 All Systems Review: A 10-system review of systems was performed and is negative for pertinent findings except as documented above in the HPI. Physical Examination Vital Signs, Last 4 Hours Temp Pulse Resp BP Pulse Ox 07/14/17 11:37 58 16 129/72 97 07/14/17 11:25 98.4 F 58 16 116/73 96 07/14/17 10:00 96 His pupils are equal, round and reactive to light and accommodation. No oral lesions. Neck is supple. Trachea in the midline. No thyromegaly or carotid bruits. Lungs are clear to percussion and auscultation. Heart is in a regular rate and rhythm. No murmurs, gallops or rubs. Abdomen is benign. He is status post cholecystectomy. No tenderness, rebound or guarding. Extremities without edema. 2+ pulses. No saphenous vein varicosities or strippings. Cranial nerves, motor and sensory intact. Results 07/14/17 01:38 07/14/17 01:38 Lab Results, Last 24 hours 07/14/17 07/14/17 07/14/17 08:55 09:57 11:34 APTT 96.3 H D 33.5 D Troponin I 5.23 H* Consult Discharge Plan - Plan Referrals: Bambi Garner MD [Primary Care Provider] - 07/19/17 9:15 am ()
[2017-07-14] MEDS ORDERED: CeFAZolin Syr 2,000MG/20 ML 2,000 MG/20 ML SYRINGE IVPB ONE (12:30)
--- NOTE | 2017-07-14 15:34 | Anesthesia Evaluation PreOp ---
Date of Encounter: 07/14/17 Time of Encounter: 15:32 - Past History Planned Operation: CABG Cardiac History: Angina, HTN, Hyperlipidemia, Other (NSTEMI 07/14/2017) Pulmonary History: Denies Any Significant HX BLOCK CUTTER History: Denies Any Significant HX Other Medical History: Diabetes Type II Anesthesia History: No Prior Anesthetic Complications Alcohol Use: occasionally Drug use: none Medications and Allergies Albuterol Sulfate [Albuterol Inhaler] 2 puff IH Q4-6H PRN 07/14/17 [History] Aspirin [Lo-Dose Aspirin EC] 81 mg PO DAILY 07/14/17 [History] Atorvastatin [Lipitor] 40 mg PO HS 07/14/17 [History] Glimepiride [Amaryl] 2 mg PO DAILY 07/14/17 [History] Pantoprazole Sodium 40 mg PO DAILY 07/14/17 [History] 3 Allergy/AdvReac Type Severity Reaction Status Date / Time No Known Allergies Allergy Verified 07/14/17 01:27 - Meds/Allergy Pre-op Review Medications Reviewed: Yes Allergies Reviewed: Yes Beta Blockers on Current Med List: Yes Anesthesia Results - Labs 07/14/17 01:38 07/14/17 01:38 - Imaging EKG: report reviewed Anesthesia Exam Vital Signs/O2 Sat/Glucose, Most Current Pulse Resp BP Pulse Ox 07/14/17 13:26 65 16 109/64 95 07/14/17 12:30 63 16 127/77 96 07/14/17 12:07 64 16 135/77 97 07/14/17 11:52 57 16 119/71 95 07/14/17 11:37 58 16 129/72 97 Weight: 86.8 bmi 28 NPO (# of Hours): 8 - HEENT Pupil (Motor): Pupils equal, EOMI Mallampati: III Teeth: Normal Denture Type: Upper: Complete, Lower: Complete - BLOCK CUTTER BLOCK CUTTER Motor: Normal RUE, Normal LUE, Normal RLE, Normal LLE, Normal Face BLOCK CUTTER Sensory: Normal: RUE, LUE, RLE, LLE, Face - Cardiac Murmur: Systolic - Pulmonary Breath Sounds: bilateral Clear Respiratory Effort: Symmetrical Anesthesia Assess/Plan ASA Score: 4 Modified [place] Scale for Level of Consciousness: Cooperative, oriented, and tranquil Anesthetic Plan: General Autologous Blood: Yes Monitoring Plan: Standard Monitors, A-Line, PAC, VASILE Recovery Plan: ICU
[2017-07-14] MEDS: Insulin LISPRO 300 UNITS/3 ML VIAL SQ SCH ×2 (16:37→20:12)
[2017-07-14 17:55] LABS: Activated Partial Thrombo Time 156.9 Seconds (26.0-36.0)
[2017-07-14 18:08] LABS: Heparin anti-factor XA UFH 0.86 IU/mL (0.30-0.70)
[2017-07-14 18:13] LABS: Bilirubin,Urine Negative (Negative); Blood,Urine Moderate (Negative); Clarity,Urine Clear (Clear); Color,Urine Yellow (Yellow); Glucose,Urine (UA) Normal (Normal); Ketones,Urine Negative (Negative); Leukocyte Esterase,Urine Negative (Negative); Nitrite,Urine Negative (Negative); Protein,Urine Negative (Neg-Trace); Urobilinogen,Urine Normal (Normal)
[2017-07-14 18:17] LABS: Bacteria,Urine None Seen per hpf (None-Few); Hyaline Casts,Urine None Seen per lpf (None-Few); RBC,Urine 30-50 per hpf (0-3); Squamous Epithelial Cell,Urine Moderate per lpf (None-Few); WBC,Urine 0-3 per hpf (0-3)
[2017-07-14] MEDS: Chlorhexidine Rinse 15 ML MOUTHWASH MM SCH (20:13)
[2017-07-15 00:29] LABS: Basophils % 0.4 %; Eosinophils # 0.1 K/mcL (0.0-0.6); Eosinophils % 0.5 %; Immature Granulocytes % 0.5 % (0-4); Lymphocytes # 3.1 K/mcL (0.6-4.6); Lymphocytes % 28.5 %; Mean Corpuscular HGB Conc 35.5 g/dL (31.6-35.5); Mean Corpuscular Hemoglobin 29.6 pg (28.0-33.3); Mean Corpuscular Volume 83.5 fL (83.0-100.0); Monocytes # 0.7 K/mcL (0.0-1.3); Monocytes % 6.2 %; Platelet Count 184 K/mcL (140-400); Red Blood Count 4.79 M/mcL (4.19-5.50); Red Cell Distribution Width 12.5 % (11.5-14.5); Segmented Neutrophils % 63.9 %
[2017-07-15 00:32] LABS: Hemoglobin 14.2 g/dL (12.9-16.9)
[2017-07-15 00:43] LABS: BUN/Creatinine Ratio 12 (6-26); Blood Urea Nitrogen 12 mg/dL (8-26); Calcium 9.2 mg/dL (8.6-10.8); Carbon Dioxide 26 mEq/L (19-29); Chloride 108 mEq/L (98-109); Glucose 132 mg/dL (70-99); Osmolality,Calculated 292 (280-300); Sodium 140 mEq/L (136-145); eGFR For African Americans > 60 (> 60); eGFR For Non-African Americans > 60 (> 60)
[2017-07-15 01:20] LABS: Hemoglobin A1C 7.7 %
[2017-07-15] MEDS: Heparin 25,000 UNIT/500 ML D5W 25,000 UNIT/500 ML MLS IVC SCH (02:54)
[2017-07-15] MEDS ORDERED: ceFAZolin 2,000 MG in Water for inj. (sterile) 20 ML IVP ONE (05:00)
[2017-07-15] MEDS: 0.9 % Sodium Chloride 1,000 ML IVC SCH ×2 (05:09→13:36)
[2017-07-15] MEDS ORDERED: *HR* Propofol 200 MG/20 ML VIAL IVP ONE (06:42)
[2017-07-15] MEDS ORDERED: *HR* FentaNYL (PF) 1,000 MCG/20 ML VIAL ONE (06:43)
[2017-07-15] MEDS ORDERED: *HR* Rocuronium Bromide 50 MG/5 ML VIAL ONE ×2 (06:45→08:56)
[2017-07-15] MEDS ORDERED: *HR* Phenylephrine 10 MG/ML VIAL ONE (06:45)
[2017-07-15] MEDS ORDERED: Nitroglycerin 25 MG/250 ML INFUS..BTL IVC ONE ×2 (06:47→11:10)
[2017-07-15] MEDS ORDERED: *HR* Etomidate 20 MG/10 ML AMPUL IVP ONE (06:47)
[2017-07-15] MEDS ORDERED: *HR* EPINEPHrine 1 MG/ML AMPUL ONE (06:47)
[2017-07-15] MEDS ORDERED: Verapamil 5 MG/2 ML VIAL ONE (06:47)
[2017-07-15] MEDS ORDERED: NiCARdipine 2.5 MG/10 ML Syringe IVPB ONE (06:49)
[2017-07-15] MEDS ORDERED: *HR* Midazolam HCl 5 MG/5 ML VIAL IVP ONE (06:50)
[2017-07-15] MEDS ORDERED: Lidocaine 2% Syringe 100 MG/5 ML ONE (06:58)
[2017-07-15 08:02] LABS: ABG Base Excess -3 mEq/L (-2 to 3); ABG Chloride 112 mEq/L (98-107); ABG Glucose 186 mg/dL (60-95); ABG HCO3 25 mEq/L (21-27); ABG Ionized Calcium 1.24 mmol/L (1.15-1.35); ABG Oxygen Saturation 100 % (95-98); ABG PCO2 54 mmHg (35-45); ABG PH 7.27 pH Units (7.32-7.45); ABG PO2 241 mmHg (85-104); ABG TCO2 27 mEq/L (20-26)
[2017-07-15] MEDS ORDERED: Famotidine 20 MG/2 ML VIAL ONE (08:42)
[2017-07-15] MEDS ORDERED: Protamine Sulfate 250 MG/25 ML VIAL IVP ONE (08:57)
[2017-07-15] MEDS ORDERED: Insulin Regular, Human 100 UNIT/ML ONE (09:09)
[2017-07-15 09:10] LABS: ABG Base Excess -3 mEq/L (-2 to 3); ABG Chloride 108 mEq/L (98-107); ABG Glucose 190 mg/dL (60-95); ABG HCO3 22 mEq/L (21-27); ABG Oxygen Saturation 100 % (95-98); ABG PCO2 39 mmHg (35-45); ABG PH 7.37 pH Units (7.32-7.45); ABG PO2 261 mmHg (85-104); ABG TCO2 24 mEq/L (20-26)
--- NOTE | 2017-07-15 09:36 | Event Note ---
Date of Encounter: 07/15/17 Time of Encounter: 09:35 Patient already gone to CABG at this time Service transfer from hospitalist team to Cardiothoracic surgery Consult franchesca
[2017-07-15] MEDS ORDERED: Sodium Bicarbonate 50 MEQ/50 ML VIAL IVC ONE (09:41)
--- NOTE | 2017-07-15 09:41 | Anesthesia Procedures ---
Date of Encounter: 07/15/17 Time of Encounter: 07:40 Procedures: Anesthesia - Arterial Line Consent obtained: written consent Time out performed: Yes Sedation: Versed (mg): 4 Supplemental Oxygen via Nasal Cannula (L/min): 2 Local Anesthetic: Lidocaine 1% Amount of Anesthetic used (mls): 0.3 Size (Gauge): 20 Length (inches): 1 3/4 Technique Used: sterile prep Post-Procedure: line taped into place Patient tolerated procedure: well Complications: none Site: Radial L - Central Line Placement Right IJ Time out performed: Yes Patient placed on monitor/pulse ox: Yes prep: mask, gown, gloves Central line prep: Chlorhexidine scrub Ultrasound used for placement: Yes Technique: Seldinger Lumen Inserted: Introducer Size / Length: 7 Fr / 16 cm Post procedure: sutured in place, good blood return, all ports aspirated, flushed, capped, sterile dressing applied Patient tolerated procedure: well Complications: none Comments: PAC inserted using pressure waveform analysis. Wedge pressure of 12 obtained and catheter withdrawn 4 cm and Secured at 50 cm.
[2017-07-15 09:43] LABS: ABG Base Excess 3 mEq/L (-2 to 3); ABG Chloride 100 mEq/L (98-107); ABG Glucose 253 mg/dL (60-95); ABG HCO3 26 mEq/L (21-27); ABG Ionized Calcium 0.87 mmol/L (1.15-1.35); ABG Oxygen Saturation 100 % (95-98); ABG PCO2 35 mmHg (35-45); ABG PH 7.48 pH Units (7.32-7.45); ABG PO2 616 mmHg (85-104); ABG TCO2 27 mEq/L (20-26)
[2017-07-15 10:09] LABS: ABG Base Excess 1 mEq/L (-2 to 3); ABG Chloride 100 mEq/L (98-107); ABG Glucose 275 mg/dL (60-95); ABG HCO3 25 mEq/L (21-27); ABG Ionized Calcium 0.94 mmol/L (1.15-1.35); ABG Oxygen Saturation 100 % (95-98); ABG PCO2 32 mmHg (35-45); ABG PO2 489 mmHg (85-104); ABG TCO2 26 mEq/L (20-26)
[2017-07-15 10:28] LABS: ABG Base Excess 0 mEq/L (-2 to 3); ABG Chloride 103 mEq/L (98-107); ABG Glucose 216 mg/dL (60-95); ABG HCO3 25 mEq/L (21-27); ABG Oxygen Saturation 100 % (95-98); ABG PCO2 37 mmHg (35-45); ABG PH 7.43 pH Units (7.32-7.45); ABG PO2 497 mmHg (85-104); ABG TCO2 26 mEq/L (20-26)
[2017-07-15] MEDS ORDERED: Albumin Human 5% 50.0 GM/1,000 ML VIAL ONE (11:11)
[2017-07-15 11:12] LABS: ABG Base Excess 0 mEq/L (-2 to 3); ABG Chloride 109 mEq/L (98-107); ABG Glucose 163 mg/dL (60-95); ABG HCO3 25 mEq/L (21-27); ABG Ionized Calcium 1.27 mmol/L (1.15-1.35); ABG Oxygen Saturation 99 % (95-98); ABG PCO2 40 mmHg (35-45); ABG PO2 122 mmHg (85-104); ABG TCO2 26 mEq/L (20-26)
[2017-07-15] MEDS ORDERED: Insulin Regular, Human 100 UNIT/ML IV PRN (11:27)
[2017-07-15] MEDS ORDERED: *HR* Dextrose 50 % in Water (Syg) 50 ML SYRINGE IVP PRN (11:27)
[2017-07-15] MEDS ORDERED: Potassium Chloride 40 MEQ/200 ML BAG IVPB PRN (11:27)
[2017-07-15] MEDS ORDERED: *HR* Promethazine 25 MG/ML VIAL IVP PRN (11:27)
[2017-07-15] MEDS ORDERED: *HR* Phenylephrine 10 MG/ML VIAL IVC ONE (11:32)
[2017-07-15] MEDS ORDERED: Mannitol 25% vial 12.5 GM/50 ML VIAL IVP ONE (11:32)
[2017-07-15] MEDS ORDERED: Lidocaine 2% Syringe 100 MG/5 ML IV ONE (11:32)
[2017-07-15] MEDS ORDERED: *HR* Magnesium Sulfate 2 GM/50 ML PIGGYBACK IVPB ONE (11:32)
[2017-07-15] MEDS ORDERED: *HR* Heparin 10,000 UNIT/10 ML VIAL IV ONE (11:32)
[2017-07-15] MEDS ORDERED: Albumin Human 25% 25 GM/100 ML IV.SOLN IV ONE (11:32)
[2017-07-15] MEDS: Insulin LISPRO 300 UNITS/3 ML VIAL SQ SCH ×4 (11:35→19:44)
[2017-07-15] MEDS: Aspirin Enteric Coated 81 MG Tablet PO SCH (11:35)
[2017-07-15] MEDS: Norepinephrine 4 MG in D5% in Water 250 ML IVC SCH (11:40)
--- NOTE | 2017-07-15 11:50 | Operative Note ---
Date of procedure: 07/15/17 Procedure in Detail: Preoperative diagnosis. Coronary artery disease. Postoperative diagnosis. Same. Procedures. Coronary artery bypass grafting 3 with the left internal mammary artery to the LAD, a saphenous vein graft to the obtuse marginal branch of the circumflex and a saphenous vein graft to the posterior descending branch of the right coronary artery. Surgeon. Dr. Weston Mullins. Asst. David Erickson. The patient is a 72-year-old gentleman who has been having unstable angina for approximately 1 month. He has been having chest pain with exertion and at rest. He presented yesterday with an acute myocardial infarction with a positive troponin. Cardiac catheterization revealed severe triple vessel disease and he was referred for surgery. Ejection fraction was 40%. He was brought to the operating room where he underwent a general anesthetic. He was prepped and draped in standard fashion. The right greater saphenous vein was harvested from below the right knee to the right groin. This was done through 2 small incisions using the scope. These incisions were separately closed using a deep layer of 0 Vicryl and a 2-0 Vicryl subcuticular stitch. A standard median sternotomy was performed. The left internal mammary artery retractor was inserted and the left internal mammary artery was harvested in standard fashion using the Bovie electrocoagulation. Following this, the mammary retractor was removed and the standard sternal flatcar whacker was inserted. Pericardium was opened in the midline and suspended with 2-0 silk stay sutures. A double purse string of 20 Surgilon was placed in the aorta for aortic cannulation site. A pursestring of 20 Surgilon was placed in the right appendage for the venous uptake. The patient was heparinized. The aorta was cannulated without difficulty. 2 stage venous uptake cannula was inserted through the right atrial appendage. Purse string of 3-0 silk was placed in the aorta and the cardioplegia needle was inserted through here. This was also used as an active and passive aortic vent. The patient was placed on Cardura pony bypass and cooled to 34. At this point, the aorta was crossclamped and a liter of cardioplegia was given. Topical cooling with iced saline slush was also done. Attention was first turned to the right coronary artery. The posterior descending branch was dissected free with the Washoe blade and opened with the Washoe blade and the Selby scissors. This had a lumen of 1-1/2 mm and was relatively free of disease. A standard end-to-side anastomosis was constructed using the saphenous vein and a 7-0 Prolene. When this is completed, the patient received additional antegrade cardioplegia. Attention was turned to the circumflex. The obtuse marginal branch was dissected free with the Washoe blade and opened with a Washoe blade and the Selby scissors. This had a lumen of 1-1/ 2 mm and was relatively free of disease. A standard end-to-side anastomosis was constructed using the saphenous vein and a 7-0 Prolene. When this is completed, the patient received the last dose of antegrade cardioplegia. Mammary pedicle was harvested. Tonsil clamp placed distally and was divided with the Metzenbaum scissors. The distal end was tied off using a 2-0 silk suture. Proximal limb was trimmed and brought into the wound. The LAD was dissected free with the Washoe blade and opened with a Washoe blade and the Selby scissors. This had a lumen of 1-1/2 mm and was relatively free of disease. A standard end-to-side anastomosis was constructed using the saphenous vein and a 7-0 Prolene. When this is completed, the previously placed bulldog clamp was removed and the hemostasis was good. The pedicle was tacked to the surface of the heart using 2 interrupted 5-0 silk sutures. Cross-clamp was removed and rewarming was begun. Total cross-clamp time was 46 minutes. A side-biting clamp was placed on the aorta and the cardioplegia needle was removed. 2 holes were made in the aorta using the Washoe blade and the 4.0 mm aortic punch. 2 proximal anastomoses were constructed in standard fashion using the saphenous veins and 5-0 Prolene's. The side-biting clamp was removed. Grafts were de-aired using #25-gauge needle. Proximal anastomoses were marked with a marker Ray-Roxann sponge. Distal anastomoses were inspected and found to be hemostatic. A pair of ventricular pacing wires was left. A total of 3 chest tubes were left. A 32 right angle chest tube to the left pleural space. A 32 angle chest tube to the pericardial well. A 42 mediastinal chest tube. The patient was weaned off bypass. He was decannulated and protamine was given. Hemostasis was good and the hemodynamics were good. Pericardium was loosely closed with interrupted 2-0 silk sutures. The sternum was closed with #7 sternal wires in simple and [id number] fashion. The fascia over with #1 Vicryl. Subcutaneous tissues with a 2-0 Vicryl. Skin was closed with a 3-0 Vicryl subcuticular stitch. The patient tolerated the procedure well and was returned intensive care unit in satisfactory and stable condition. Total cross-clamp time was 46 minutes. Total bypass time was 79 minutes. He been cooled to 34.
[2017-07-15] MEDS: Nitroglycerin 25 MG/250 ML INFUS..BTL IVC SCH (11:55)
[2017-07-15] MEDS ORDERED: niCARdipine 40 MG/200 ML MLS IVC ONE (11:56)
[2017-07-15] MEDS: niCARdipine 40 MG/200 ML MLS IVC SCH (12:00)
[2017-07-15 12:16] LABS: Basophils % 0.2 %; Eosinophils # 0.1 K/mcL (0.0-0.6); Eosinophils % 0.8 %; Hematocrit 32.2 % (37.5-50.1); Immature Granulocytes % 0.6 % (0-4); Lymphocytes % 21.8 %; Mean Corpuscular HGB Conc 34.8 g/dL (31.6-35.5); Mean Corpuscular Hemoglobin 29.6 pg (28.0-33.3); Mean Corpuscular Volume 85.2 fL (83.0-100.0); Mean Platelet Volume 8.9 fL (9.4-12.4); Monocytes # 0.6 K/mcL (0.0-1.3); Monocytes % 4.4 %; Platelet Count 101 K/mcL (140-400); Red Blood Count 3.78 M/mcL (4.19-5.50); Red Cell Distribution Width 12.3 % (11.5-14.5); Segmented Neutrophils % 72.2 %
[2017-07-15 12:17] LABS: Hemoglobin 11.2 g/dL (12.9-16.9)
[2017-07-15 12:19] LABS: Neutrophils # 9.8 K/mcL (1.6-8.9)
[2017-07-15 12:21] LABS: INR 1.6; Prothrombin Time 17.7 Seconds (9.4-12.1)
[2017-07-15 12:26] LABS: ABG Base Excess 0 mEq/L (-2 to 3); ABG HCO3 25 mEq/L (21-27); ABG Oxygen Saturation 99 % (95-98); ABG PCO2 42 mmHg (35-45); ABG PH 7.38 pH Units (7.32-7.45); ABG PO2 131 mmHg (85-104); ABG TCO2 26 mEq/L (20-26)
[2017-07-15 12:28] LABS: Activated Partial Thrombo Time 28.8 Seconds (26.0-36.0); BUN/Creatinine Ratio 11 (6-26); Blood Urea Nitrogen 9 mg/dL (8-26); Calcium 7.5 mg/dL (8.6-10.8); Carbon Dioxide 23 mEq/L (19-29); Chloride 110 mEq/L (98-109); Glucose 117 mg/dL (70-99); Magnesium 2.1 mg/dL (1.6-2.6); Osmolality,Calculated 290 (280-300); Potassium 3.2 mEq/L (3.5-4.5); Sodium 140 mEq/L (136-145); eGFR For African Americans > 60 (> 60); eGFR For Non-African Americans > 60 (> 60)
[2017-07-15] MEDS: Chlorhexidine Rinse 15 ML MOUTHWASH MM SCH ×2 (13:03→19:50)
[2017-07-15] MEDS: Insulin Human Regular 100 UNIT in 0.9 % Sodium Chloride 100 ML IVC SCH (13:05)
--- NOTE | 2017-07-15 13:23 | Anesthesia Evaluation Post Op ---
Date of Encounter: 07/15/17 Time of Encounter: 13:21 - Vital Signs Vital Signs: BP 101/52 HR 73 O2sat 98 - Lungs Lungs: Clear Ascult./Percussion - Airway Airway: Intubated - Cardiovascular Regular Rate - Mental Status Mental Status: Sedated - Nausea Vomiting Nausea Vomiting: Not Present - Hydration Hydration: NPO - Discharge Attestation: Patient in ICU, VSS, pressors weaned off, chest tubes with minimal output. He is starting to overbreath the vent and strength returning.
[2017-07-15] MEDS: *HR* OxyCODONE/APAP 5/325 TABLET PO PRN (15:23)
[2017-07-15] MEDS: *HR* Morphine 2 MG/ML SYRINGE IVP PRN (15:24)
[2017-07-15] MEDS: CeFAZolin Premix DUPLEX 2,000 MG/50 ML BAG IVPB SCH (15:51)
[2017-07-15] MEDS ORDERED: ceFAZolin 2,000 MG in D5% in Water 100 ML IVPB SCH (16:00)
[2017-07-15 16:15] LABS: ABG Base Excess -2 mEq/L (-2 to 3); ABG HCO3 24 mEq/L (21-27); ABG Oxygen Saturation 97 % (95-98); ABG PCO2 47 mmHg (35-45); ABG PH 7.32 pH Units (7.32-7.45); ABG PO2 95 mmHg (85-104); ABG TCO2 26 mEq/L (20-26)
[2017-07-15 16:20] LABS: Hematocrit 29.4 % (37.5-50.1)
[2017-07-15 16:21] LABS: Hemoglobin 10.4 g/dL (12.9-16.9)
[2017-07-15 18:55] LABS: ABG Base Excess -2 mEq/L (-2 to 3); ABG HCO3 24 mEq/L (21-27); ABG Oxygen Saturation 97 % (95-98); ABG PCO2 45 mmHg (35-45); ABG PH 7.34 pH Units (7.32-7.45); ABG PO2 101 mmHg (85-104); ABG TCO2 25 mEq/L (20-26); Blood Gas Modality CPAP/PS; Blood Gas PEEP 5 cm H2O; Blood Gas Pressure Support 5 cm H2O
[2017-07-15 19:55] LABS: ABG Base Excess -1 mEq/L (-2 to 3); ABG HCO3 24 mEq/L (21-27); ABG Oxygen Saturation 95 % (95-98); ABG PCO2 42 mmHg (35-45); ABG PH 7.37 pH Units (7.32-7.45); ABG PO2 77 mmHg (85-104); ABG TCO2 26 mEq/L (20-26)
[2017-07-16] MEDS: CeFAZolin Premix DUPLEX 2,000 MG/50 ML BAG IVPB SCH (00:41)
[2017-07-16] MEDS: *HR* Morphine 2 MG/ML SYRINGE IVP PRN ×2 (00:41→04:12)
[2017-07-16] MEDS: *HR* OxyCODONE/APAP 5/325 TABLET PO PRN ×3 (04:12→17:50)
[2017-07-16 04:16] LABS: INR 1.6; Prothrombin Time 17.6 Seconds (9.4-12.1)
[2017-07-16 04:17] LABS: Basophils % 0.1 %; Hemoglobin 10.7 g/dL (12.9-16.9); Immature Granulocytes % 0.6 % (0-4); Lymphocytes # 1.6 K/mcL (0.6-4.6); Lymphocytes % 11.2 %; Mean Corpuscular HGB Conc 34.5 g/dL (31.6-35.5); Mean Corpuscular Volume 86.8 fL (83.0-100.0); Mean Platelet Volume 9.4 fL (9.4-12.4); Monocytes # 0.9 K/mcL (0.0-1.3); Monocytes % 6.7 %; Neutrophils # 11.4 K/mcL (1.6-8.9); Platelet Count 126 K/mcL (140-400); Red Blood Count 3.57 M/mcL (4.19-5.50); Red Cell Distribution Width 12.7 % (11.5-14.5); Segmented Neutrophils % 81.4 %
[2017-07-16 04:19] LABS: Activated Partial Thrombo Time 27.5 Seconds (26.0-36.0)
[2017-07-16 04:27] LABS: BUN/Creatinine Ratio 13 (6-26); Blood Urea Nitrogen 14 mg/dL (8-26); Calcium 8.3 mg/dL (8.6-10.8); Carbon Dioxide 22 mEq/L (19-29); Chloride 112 mEq/L (98-109); Glucose 148 mg/dL (70-99); Osmolality,Calculated 297 (280-300); Potassium 4.1 mEq/L (3.5-4.5); eGFR For African Americans > 60 (> 60); eGFR For Non-African Americans > 60 (> 60)
[2017-07-16 04:30] LABS: Sodium 142 mEq/L (136-145)
[2017-07-16] MEDS: 0.9 % Sodium Chloride 1,000 ML IVC SCH (05:03)
[2017-07-16] MEDS: Acetaminophen 325 MG TABLET PO PRN ×2 (06:59→19:42)
[2017-07-16] MEDS: Nitroglycerin 25 MG/250 ML INFUS..BTL IVC SCH ×3 (08:39→18:07)
[2017-07-16] MEDS: niCARdipine 40 MG/200 ML MLS IVC SCH ×4 (08:39→20:09)
[2017-07-16] MEDS: Insulin LISPRO 300 UNITS/3 ML VIAL SQ SCH ×3 (08:40→16:41)
[2017-07-16] MEDS: Aspirin Enteric Coated 81 MG Tablet PO SCH (08:44)
[2017-07-16] MEDS: Chlorhexidine Rinse 15 ML MOUTHWASH MM SCH ×2 (08:45→19:34)
--- NOTE | 2017-07-16 09:10 | Cardiothoracic Progress Note ---
Date of Encounter: 07/16/17 Time of Encounter: 09:08 - Assessment and plan (1) Non-STEMI (non-ST elevated myocardial infarction) Current Visit: Yes Status: Acute We will leave the patient in the ICU until tomorrow. We will discontinue his A- line, IV fluids and Wallace-Michael catheter. - Subjective Interval history: The patient complains of mild postoperative pain. He requests that we leave his Billings catheter until tomorrow when we take his chest tubes out. Vital Signs, Last 4 Hours Temp Pulse Resp BP Pulse Ox 07/16/17 08:14 16 95 07/16/17 08:00 98 16 135/64 95 07/16/17 07:00 99.9 F H 98 16 103/55 95 07/16/17 06:00 99.9 F H 93 12 103/49 94 Oxgyen Flow Rate Oxygen Flow Rate (LPM) 2 Clinical Data, last 8 Hours Output, Chest Tube Drainage 20 Amount [mediastinal 3] Output, Chest Tube Drainage 0 Amount [mediastinal 3] Output, Chest Tube Drainage 5 Amount [mediastinal 3] Output, Chest Tube Drainage 0 Amount [mediastinal 3] Output, Chest Tube Drainage 0 Amount [mediastinal 3] Output, Chest Tube Drainage 10 Amount [mediastinal 3] Output, Chest Tube Drainage 0 Amount [mediastinal 3] Output, Chest Tube Drainage 10 Amount [mediastinal 2] Output, Chest Tube Drainage 0 Amount [mediastinal 2] Output, Chest Tube Drainage 0 Amount [mediastinal 2] Output, Chest Tube Drainage 0 Amount [mediastinal 2] Output, Chest Tube Drainage 0 Amount [mediastinal 2] Output, Chest Tube Drainage 10 Amount [mediastinal 2] Output, Chest Tube Drainage 0 Amount [mediastinal 2] Output, Chest Tube Drainage 20 Amount [mediastinal 1] Output, Chest Tube Drainage 10 Amount [mediastinal 1] Output, Chest Tube Drainage 0 Amount [mediastinal 1] Output, Chest Tube Drainage 30 Amount [mediastinal 1] Output, Chest Tube Drainage 0 Amount [mediastinal 1] Output, Chest Tube Drainage 10 Amount [mediastinal 1] Output, Chest Tube Drainage 0 Amount [mediastinal 1] Output, Urine Amount [Urethral 35 (Billings)] Lungs are clear to percussion and auscultation. Heart is in a normal sinus rhythm. All incisions are healing well without signs of infection and the sternum is stable. Chest tube drainage is minimal and there is no air leak. - Labs 07/16/17 03:50 07/16/17 03:50 Lab Results, Last 24 hours 07/15/17 07/15/17 07/15/17 12:02 12:02 12:02 WBC 13.6 H Hgb 11.2 L D Hct 32.2 L Plt Count 101 L INR 1.6 APTT 28.8 D Sodium 140 Potassium 3.2 L Chloride 110 H Carbon Dioxide 23 BUN 9 Creatinine 0.81 Glucose 117 H Calcium 7.5 L D Magnesium 2.1 07/15/17 07/15/17 07/16/17 15:56 15:56 03:50 WBC 14.1 H Hgb 10.4 L 10.7 L Hct 29.4 L 31.0 L Plt Count 126 L INR APTT Sodium Potassium 3.9 Chloride Carbon Dioxide BUN Creatinine Glucose Calcium Magnesium 07/16/17 07/16/17 03:50 03:50 WBC Hgb Hct Plt Count INR 1.6 APTT 27.5 Sodium 142 Potassium 4.1 Chloride 112 H Carbon Dioxide 22 BUN 14 Creatinine 1.08 Glucose 148 H Calcium 8.3 L Magnesium 2.0 - VTE Documentation of Mechanical Device: Graduated compression elastic hosiery Consult Discharge Plan - Plan Referrals: Bambi Garner MD [Primary Care Provider] - 07/19/17 9:15 am ()
--- NOTE | 2017-07-16 10:44 | Electrocardiograph Report ---
[address] [place] [address] Test Date: 2017-07-15 Pat Name: Alec Downing Department: 109 Room: 06 Gender: M Collision Technician: GARETH : 1945 Requested By: Weston Mullins Order Number: [id number] Reading MD: Abbey Peterson Measurements Intervals [place] Rate: 82 P: 53 LA: 226 QRS: -31 QRSD: 108 T: 210 QT: 407 QTc: 446 Interpretive Statements SINUS RHYTHM WITH FIRST DEGREE AV BLOCK MARKED LEFT AXIS DEVIATION INCOMPLETE RIGHT BUNDLE BRANCH BLOCK ST DEVIATION AND MODERATE T-WAVE ABNORMALITY, CONSIDER LATERAL ISCHEMIA ST DEVIATION AND MODERATE T-WAVE ABNORMALITY, CONSIDER INFERIOR ISCHEMIA Electronically Signed On 07-16-2017 10:42:58 EDT by Abbey Peterson
--- NOTE | 2017-07-16 11:03 | Electrocardiograph Report ---
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
--- NOTE | 2017-07-16 11:06 | Electrocardiograph Report ---
[place] [address] Test Date: 2017-07-14 Pat Name: Alec Downing Department: 104 Room: [facility] Gender: M Certified Energy Manager: : 1945 Requested By: Ritchie Mccabe Order Number: [id number] Reading MD: Abbey Peterson Measurements Intervals [place] Rate: 78 P: 58 RI: 188 QRS: -1 QRSD: 94 T: 107 QT: 346 QTc: 380 Interpretive Statements SINUS RHYTHM NONSPECIFIC ST & T-WAVE ABNORMALITY Electronically Signed On 07-16-2017 11:04:16 EDT by Abbey Peterson
[2017-07-16] MEDS: Insulin Human Regular 100 UNIT in 0.9 % Sodium Chloride 100 ML IVC SCH (12:52)
[2017-07-16] MEDS: Norepinephrine 4 MG in D5% in Water 250 ML IVC SCH (12:53)
[2017-07-16] MEDS ORDERED: Insulin LISPRO 300 UNITS/3 ML VIAL SQ SCH (21:00)
[2017-07-17 01:20] LABS: Basophils % 0.3 %; Eosinophils % 0.1 %; Hemoglobin 10.5 g/dL (12.9-16.9); Immature Granulocytes % 0.4 % (0-4); Lymphocytes # 2.8 K/mcL (0.6-4.6); Mean Corpuscular Hemoglobin 29.9 pg (28.0-33.3); Mean Corpuscular Volume 85.5 fL (83.0-100.0); Mean Platelet Volume 10.1 fL (9.4-12.4); Monocytes % 6.2 %; Neutrophils # 11.8 K/mcL (1.6-8.9); Platelet Count 119 K/mcL (140-400); Red Blood Count 3.51 M/mcL (4.19-5.50); Red Cell Distribution Width 12.6 % (11.5-14.5)
[2017-07-17 01:31] LABS: BUN/Creatinine Ratio 18 (6-26); Blood Urea Nitrogen 19 mg/dL (8-26); Calcium 8.8 mg/dL (8.6-10.8); Carbon Dioxide 21 mEq/L (19-29); Chloride 107 mEq/L (98-109); Glucose 166 mg/dL (70-99); Osmolality,Calculated 292 (280-300); Potassium 4.2 mEq/L (3.5-4.5); Sodium 138 mEq/L (136-145); eGFR For African Americans > 60 (> 60); eGFR For Non-African Americans > 60 (> 60)
[2017-07-17] MEDS: *HR* OxyCODONE/APAP 5/325 TABLET PO PRN ×3 (01:38→23:57)
[2017-07-17] MEDS: Nitroglycerin 25 MG/250 ML INFUS..BTL IVC SCH (08:36)
[2017-07-17] MEDS: niCARdipine 40 MG/200 ML MLS IVC SCH (08:37)
[2017-07-17] MEDS: Insulin LISPRO 300 UNITS/3 ML VIAL SQ SCH ×4 (08:37→21:05)
[2017-07-17] MEDS: Aspirin Enteric Coated 81 MG Tablet PO SCH (08:42)
[2017-07-17] MEDS: Chlorhexidine Rinse 15 ML MOUTHWASH MM SCH ×2 (08:42→21:06)
--- NOTE | 2017-07-17 09:14 | Cardiothoracic Progress Note ---
Date of Encounter: 07/17/17 Time of Encounter: 09:12 - Assessment and plan (1) Non-STEMI (non-ST elevated myocardial infarction) Current Visit: Yes Status: Acute The chest tubes and pacing wires were removed. We will check a stat portable chest x-ray. We will transfer the patient to the floor. - Subjective Interval history: The patient has mild postoperative pain. His Billings catheter was removed yesterday and he is urinating without difficulty. Vital Signs, Last 4 Hours Temp Pulse Resp BP Pulse Ox 07/17/17 08:00 91 16 128/66 92 07/17/17 07:54 89 07/17/17 07:00 98.4 F 89 18 106/70 94 07/17/17 06:00 89 15 120/68 92 Oxgyen Flow Rate Oxygen Flow Rate (LPM) 2 Clinical Data, last 8 Hours Output, Chest Tube Drainage 20 Amount [mediastinal 3] Output, Chest Tube Drainage 26 Amount [mediastinal 3] Output, Chest Tube Drainage 20 Amount [mediastinal 2] Output, Chest Tube Drainage 40 Amount [mediastinal 2] Output, Chest Tube Drainage 10 Amount [mediastinal 1] Output, Chest Tube Drainage 0 Amount [mediastinal 1] Output, Urine Amount 0 Output, Urine Amount 125 Output, Urine Amount 0 Output, Urine Amount 125 Weight 07/15/17 07/16/17 07/17/17 23:59 23:59 22:59 Weight 89.9 kg Lungs are clear to percussion and auscultation. Heart is in a normal sinus rhythm. All incisions are healing well without signs of infection and the sternum is stable. Chest tube drainage is minimal and there is no air leak. - Labs 07/17/17 01:41 EST 07/17/17 01:41 EST Lab Results, Last 24 hours 07/17/17 07/17/17 01:41 EST 01:41 EST WBC 15.8 H Hgb 10.5 L Hct 30.0 L Plt Count 119 L Sodium 138 Potassium 4.2 Chloride 107 Carbon Dioxide 21 BUN 19 Creatinine 1.08 Glucose 166 H Calcium 8.8 - VTE Documentation of Mechanical Device: Graduated compression elastic hosiery Consult Discharge Plan - Plan Referrals: Bambi Garner MD [Primary Care Provider] - 07/19/17 9:15 am ()
[2017-07-17] MEDS ORDERED: Dextrose Gel 15 GM PO PRN ×2 (09:55)
[2017-07-17] MEDS ORDERED: Acetaminophen 325 MG TABLET PO PRN (09:55)
[2017-07-17] MEDS ORDERED: *HR* Promethazine 25 MG/ML VIAL IVP PRN (09:55)
[2017-07-17] MEDS ORDERED: *HR* Dextrose 50 % in Water (Syg) 50 ML SYRINGE IVP PRN (09:55)
[2017-07-17] MEDS ORDERED: Nitroglycerin 0.4 MG TAB.SUBL SL PRN (09:55)
[2017-07-17] MEDS ORDERED: D5% in Water 1,000 ML IVC PRN (09:55)
[2017-07-17] MEDS ORDERED: Ondansetron 4 MG/2 ML VIAL IVP PRN (09:55)
[2017-07-17] MEDS ORDERED: Naloxone 0.4 MG/ML INJ IVP PRN (09:55)
[2017-07-17] MEDS ORDERED: *HR* Morphine 2 MG/ML SYRINGE IVP PRN ×2 (09:55)
[2017-07-17] MEDS: *HR* Heparin 5,000 UNIT/ML VIAL SQ SCH (16:51)
[2017-07-18 04:32] LABS: Basophils % 0.3 %; Eosinophils # 0.2 K/mcL (0.0-0.6); Eosinophils % 1.5 %; Hematocrit 29.1 % (37.5-50.1); Hemoglobin 10.1 g/dL (12.9-16.9); Immature Granulocytes % 0.6 % (0-4); Lymphocytes # 2.6 K/mcL (0.6-4.6); Lymphocytes % 20.1 %; Mean Corpuscular HGB Conc 34.7 g/dL (31.6-35.5); Mean Corpuscular Hemoglobin 30.1 pg (28.0-33.3); Mean Corpuscular Volume 86.6 fL (83.0-100.0); Mean Platelet Volume 9.7 fL (9.4-12.4); Monocytes # 0.7 K/mcL (0.0-1.3); Monocytes % 5.3 %; Neutrophils # 9.5 K/mcL (1.6-8.9); Platelet Count 159 K/mcL (140-400); Red Blood Count 3.36 M/mcL (4.19-5.50); Red Cell Distribution Width 12.4 % (11.5-14.5); Segmented Neutrophils % 72.2 %
[2017-07-18 04:52] LABS: BUN/Creatinine Ratio 19 (6-26); Blood Urea Nitrogen 18 mg/dL (8-26); Calcium 8.7 mg/dL (8.6-10.8); Carbon Dioxide 24 mEq/L (19-29); Chloride 107 mEq/L (98-109); Glucose 187 mg/dL (70-99); Osmolality,Calculated 297 (280-300); Potassium 3.8 mEq/L (3.5-4.5); Sodium 140 mEq/L (136-145); eGFR For African Americans > 60 (> 60); eGFR For Non-African Americans > 60 (> 60)
[2017-07-18] MEDS: *HR* Heparin 5,000 UNIT/ML VIAL SQ SCH ×2 (06:12→17:44)
[2017-07-18] MEDS: Insulin LISPRO 300 UNITS/3 ML VIAL SQ SCH ×4 (08:05→21:06)
[2017-07-18] MEDS: Chlorhexidine Rinse 15 ML MOUTHWASH MM SCH ×2 (08:16→21:05)
[2017-07-18] MEDS: Aspirin Enteric Coated 81 MG Tablet PO SCH (08:16)
--- NOTE | 2017-07-18 08:48 | Cardiothoracic Progress Note ---
Date of Encounter: 07/18/17 Time of Encounter: 08:46 - Assessment and plan (1) Non-STEMI (non-ST elevated myocardial infarction) Current Visit: Yes Status: Acute I will ask the picking supervisor to talk to the patient and his concerning his diabetes. I will increase his Lopressor dosage to 50 mg by mouth twice a day. Hopefully, the patient can be discharged on Tuesday. - Subjective Interval history: The patient has no complaints. His postoperative pain is improving. He is beginning to ambulate without difficulty. Vital Signs, Last 4 Hours Temp Pulse Resp BP Pulse Ox 07/18/17 08:06 16 91 07/18/17 07:40 98.1 F 93 17 112/72 95 Oxgyen Flow Rate Oxygen Flow Rate (LPM) 2 Clinical Data, last 8 Hours Output, Urine Amount 200 Output, Urine Amount 175 Output, Urine Amount 225 Weight 07/17/17 07/17/17 07/18/17 00:59 23:59 23:59 Weight 90 kg Lungs are clear to percussion and auscultation. Heart is in a normal sinus rhythm. All incisions are healing well without signs of infection and the sternum is stable. - Labs 07/18/17 03:45 07/18/17 03:45 Lab Results, Last 24 hours 07/18/17 07/18/17 03:45 03:45 WBC 13.1 H Hgb 10.1 L Hct 29.1 L Plt Count 159 Sodium 140 Potassium 3.8 Chloride 107 Carbon Dioxide 24 BUN 18 Creatinine 0.96 Glucose 187 H Calcium 8.7 - VTE Documentation of Mechanical Device: Graduated compression elastic hosiery Consult Discharge Plan - Plan Referrals: Bambi Garner MD [Primary Care Provider] - 07/19/17 9:15 am ()
[2017-07-18] MEDS: *HR* OxyCODONE/APAP 5/325 TABLET PO PRN ×2 (12:28→23:29)
[2017-07-19 04:43] LABS: Basophils % 0.3 %; Eosinophils # 0.4 K/mcL (0.0-0.6); Eosinophils % 3.9 %; Hemoglobin 9.9 g/dL (12.9-16.9); Immature Granulocytes % 1.3 % (0-4); Lymphocytes # 2.4 K/mcL (0.6-4.6); Lymphocytes % 26.1 %; Mean Corpuscular HGB Conc 34.1 g/dL (31.6-35.5); Mean Corpuscular Hemoglobin 29.6 pg (28.0-33.3); Mean Corpuscular Volume 86.8 fL (83.0-100.0); Mean Platelet Volume 9.4 fL (9.4-12.4); Monocytes # 0.6 K/mcL (0.0-1.3); Monocytes % 6.3 %; Neutrophils # 5.8 K/mcL (1.6-8.9); Platelet Count 189 K/mcL (140-400); Red Blood Count 3.34 M/mcL (4.19-5.50); Red Cell Distribution Width 12.2 % (11.5-14.5); Segmented Neutrophils % 62.1 %
[2017-07-19 05:01] LABS: BUN/Creatinine Ratio 20 (6-26); Blood Urea Nitrogen 17 mg/dL (8-26); Calcium 8.6 mg/dL (8.6-10.8); Carbon Dioxide 25 mEq/L (19-29); Chloride 109 mEq/L (98-109); Glucose 162 mg/dL (70-99); Osmolality,Calculated 299 (280-300); Potassium 3.7 mEq/L (3.5-4.5); Sodium 142 mEq/L (136-145); eGFR For African Americans > 60 (> 60); eGFR For Non-African Americans > 60 (> 60)
[2017-07-19] MEDS: *HR* Heparin 5,000 UNIT/ML VIAL SQ SCH ×2 (06:28→18:28)
[2017-07-19] MEDS: Aspirin Enteric Coated 81 MG Tablet PO SCH (07:58)
[2017-07-19] MEDS: Chlorhexidine Rinse 15 ML MOUTHWASH MM SCH ×2 (07:58→20:21)
[2017-07-19] MEDS: Insulin LISPRO 300 UNITS/3 ML VIAL SQ SCH ×4 (07:59→20:23)
--- NOTE | 2017-07-19 09:20 | Cardiothoracic Progress Note ---
Date of Encounter: 07/19/17 Time of Encounter: 09:18 - Assessment and plan (1) Non-STEMI (non-ST elevated myocardial infarction) Current Visit: Yes Status: Acute I will order milk of magnesia for constipation. We will check a urine UA and culture. We will start the patient on Bactrim double strength pending the results. The patient may be able to be discharged tomorrow. - Subjective Interval history: The patient complains of dysuria and frequency. He has not had a bowel movement since surgery. He has been ambulating. Vital Signs, Last 4 Hours Temp Pulse Resp BP Pulse Ox 07/19/17 08:31 16 92 07/19/17 07:36 98.4 F 84 16 130/81 93 Oxgyen Flow Rate Oxygen Flow Rate (LPM) 0 Clinical Data, last 8 Hours Output, Urine Amount 100 Output, Urine Amount 175 Output, Urine Amount 425 Output, Urine Amount 325 Weight 07/17/17 07/18/17 07/19/17 23:59 23:59 23:59 Weight 90 kg 88.6 kg Lungs are clear to percussion and auscultation. Heart is in a normal sinus rhythm. All incisions are healing well without signs of infection and the sternum is stable. - Labs 07/19/17 04:20 07/19/17 04:20 Lab Results, Last 24 hours 07/19/17 07/19/17 04:20 04:20 WBC 9.3 Hgb 9.9 L Hct 29.0 L Plt Count 189 Sodium 142 Potassium 3.7 Chloride 109 Carbon Dioxide 25 BUN 17 Creatinine 0.87 Glucose 162 H Calcium 8.6 - VTE Documentation of Mechanical Device: Intermittent pneumatic compression device Consult Discharge Plan - Plan Referrals: Weston Mullins MD [Partnered Physician] - Jose Medina DO [Partnered Physician] - (SENT WEB REQUEST ON 07-18-17 @ 0058 ) Bambi Garner MD [Primary Care Provider] - 07/26/17 3:00 pm ()
[2017-07-19] MEDS ORDERED: MOM Conc 10 ML UD.LIQ PO PRN (09:23)
[2017-07-19] MEDS: *HR* HYDROcodone/Acet 5/325 mg TABLET PO PRN ×3 (09:39→23:41)
[2017-07-19] MEDS: Sulfamethoxazole/Trimeth DS 1 EACH TABLET PO SCH ×2 (12:09→20:20)
[2017-07-19 12:27] LABS: Bilirubin,Urine Negative (Negative); Blood,Urine Negative (Negative); Clarity,Urine Clear (Clear); Color,Urine Yellow (Yellow); Glucose,Urine (UA) 100 mg/dL (Normal); Ketones,Urine Negative (Negative); Leukocyte Esterase,Urine Negative (Negative); Nitrite,Urine Negative (Negative); PH,Urine 7.5 pH Units (5.0-8.0); Protein,Urine Trace mg/dL (Neg-Trace); Specific Gravity,Urine 1.023 (1.010-1.025); Urobilinogen,Urine Normal (Normal)
[2017-07-19 12:32] LABS: Bacteria,Urine None Seen per hpf (None-Few); Hyaline Casts,Urine None Seen per lpf (None-Few); RBC,Urine 0-3 per hpf (0-3); Squamous Epithelial Cell,Urine Moderate per lpf (None-Few); WBC,Urine 0-3 per hpf (0-3)
[2017-07-20] MEDS: *HR* Heparin 5,000 UNIT/ML VIAL SQ SCH (06:41)
[2017-07-20] MEDS: *HR* HYDROcodone/Acet 5/325 mg TABLET PO PRN (06:45)
[2017-07-20 07:08] VITALS: BP 129/81
[2017-07-20] MEDS: Sulfamethoxazole/Trimeth DS 1 EACH TABLET PO SCH (08:28)
[2017-07-20] MEDS: Aspirin Enteric Coated 81 MG Tablet PO SCH (08:29)
[2017-07-20] MEDS: Insulin LISPRO 300 UNITS/3 ML VIAL SQ SCH (08:29)
[2017-07-20] MEDS: Chlorhexidine Rinse 15 ML MOUTHWASH MM SCH (08:30)
--- NOTE | 2017-07-20 09:03 | Discharge Summary ---
Date of Encounter: 07/20/17 Time of Encounter: 08:57 - Discharge Diagnosis (1) Non-STEMI (non-ST elevated myocardial infarction) Priority: Primary Status: Acute - Discharge Medications Prescriptions: HYDROcodone/Acet 5/325 mg [[place] 5-325 mg] 1 tab PO Q4HR PRN #30 tablet PRN Reason: Moderate Pain Metoprolol [Lopressor] 50 mg PO BID #60 tablet Sulfamethoxazole/Trimeth DS [Bactrim Ds] 1 each PO BID #14 tablet Home Medications: Albuterol Sulfate [Albuterol Inhaler] 2 puff IH Q4-6H PRN 07/14/17 [History] Aspirin [Lo-Dose Aspirin EC] 81 mg PO DAILY 07/14/17 [History] Atorvastatin [Lipitor] 40 mg PO HS 07/14/17 [History] Glimepiride [Amaryl] 2 mg PO DAILY 07/14/17 [History] Pantoprazole Sodium 40 mg PO DAILY 07/14/17 [History] HYDROcodone/Acet 5/325 mg [[place] 5-325 mg] 1 tab PO Q4HR PRN #30 tablet [Rx] Metoprolol [Lopressor] 50 mg PO BID #60 tablet 07/20/17 [Rx] Sulfamethoxazole/Trimeth DS [Bactrim Ds] 1 each PO BID #14 tablet 07/20/17 [Rx] Allergies/Adverse Reactions: 3 Allergy/AdvReac Type Severity Reaction Status Date / Time No Known Allergies Allergy Verified 07/14/17 01:27 Date of admission: 07/14/17 04:05 Primary care physician: Bambi Garner MD Consults: 07/15/17 11:28 Consult to Cardiac Rehabilitation-Phase1 [CONS] Routine Comment: Reason for Consult: Post open heart Call Completed: Yes Consult to [place] [facility] [CONS] Routine Reason for SW Consult: open heart 07/17/17 09:55 Consult for Pharmacy Education [CONS] Routine Reason for Consult: Post-Op Heart Call Completed: Yes Consult to Occupational Therapy [CONS] Routine Comment: Evaluate, develop and implement POC Reason for Consult: Post-Op Heart Consult to Physical Therapy [CONS] Routine Comment: Evaluate, develop and implement POC Reason for Consult: Post open heart 07/18/17 08:50 Consult to [facility] [CONS] Routine Comment: Reason for Consult: diabetic education Procedure(s) Performed: July 15, 2017. Coronary artery bypass grafting 3, utilizing the left internal mammary artery. Discharging clinician: Weston Mullins Anticipated date of discharge: 07/20/17 - Patient Status Disposition: Home, Self-Care Condition: Good Functional capacity at discharge: independent ambulation Overall status at discharge: patient is progressing back to baseline - Discharge Instructions Follow Up With: Diomedes Friedman DO [Partnered Physician] - (SPOKE WITH NIMISHA IN CARDIOLOGY OFFICE ON 07-20-17 @ 0840 SHE SAID THEY WOULD CALL THE PATIENT AT HOME WITH A FOLLOW UP APPOINTMENT) Weston Mullins MD [Partnered Physician] - 08/25/17 1:00 pm Bambi Garner MD [Primary Care Provider] - 07/26/17 12:00 pm () - Hospital Course Hospital course: Mr. Downing is a 72 year old male The patient is a 72-year-old gentleman who presented with chest pain and a positive troponin. He does have a history of hypertension, diabetes and hyperlipidemia. Cardiac catheterization revealed decreased ventricular function with an ejection fraction of 40%. 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 On July 15, 2017, I took him to the operating room for coronary artery bypass grafting 3, utilizing the left internal mammary artery. The patient tolerated procedure well. On July 17, his chest tubes and pacing wires were removed. Chest x-ray revealed no pneumothorax. He was transferred to the floor. The patient otherwise did well and was discharged on July 20. At that time, he was afebrile. Lungs were clear to percussion and auscultation. Heart was in a normal sinus rhythm. All incisions were healing well without signs of infection and the sternum was stable. Discharge medications are on the med rec and include [place] for pain. I did check the [place] automated Rx reporting system. The patient was given a one- week supply and he was postoperative. Appropriate precautions were given. He was to return to his previous and regular diet. He was to walk as much as possible, but to avoid heavy lifting for a total of 3 months after surgery. He was to avoid driving for a total of 1 month after surgery. He was to follow up and see me in the office in 4 weeks as directed. He was to follow-up with his criminal investigator customs and primary care doctor as directed. He was to call sooner for any difficulties. - Time Spent with Patient Total time spent providing and/or coordinating discharge services: Physical Examination Vital Signs, Last 4 Hours Temp Pulse Resp BP Pulse Ox 07/20/17 08:03 19 92 07/20/17 07:04 98.3 F 87 19 129/81 90 Open Heart Registry Aspirin Cont/Prescribed at DC: Yes Beta Waqas Cont/Prescribed at DC: Yes Statin Cont/Prescribed at DC: Yes ROSINA/ARB Cont/Prescribed at DC: Not indicated - VTE Documentation of Mechanical Device: Graduated compression elastic hosiery
== END 2017-07-20 11:33 | disposition home or self-care (01) | DRG 234 ==
LOC: EMEROO 01:23 → 2ANU 01:23 → ICNU 07-15 08:44 → 2NNU 07-17 11:07
PROVIDERS: ADMIT Internal Medicine; ATTEND Internal Medicine